=== PATIENT | male | born 1970 | race Two or more races ===

== ENCOUNTER 2017-07-24 20:34 | Emergency (ER) | payer OTHER ==
[~2017-07-24] VITALS: Ht 170.2 cm; Wt 81.6 kg
[~2017-07-24 20:34] MED LIST: CEFTIN500 MG PO; CONVIVIR; FIORICET TABLET1 TAB PO; FOLIC ACID1 MG PO; IBUPROFEN800 MG PO; KETO10TA2 PO; ORPH100T PO; SEPTRA DS TABLE1 TAB PO; ULTRACET PO; VIRACEPT250 MG PO; [UNRECOGNIZED DRUG - OTHER]
== END 2017-07-24 22:34 | disposition home or self-care (01) ==
LOC: ER 20:34
DX: H57.8 Other specified disorders of eye and adnexa (principal)

== ENCOUNTER 2020-01-15 11:07 | Emergency (ER) | payer OTHER ==
[~2020-01-15] VITALS: Ht 170.2 cm; Wt 81.6 kg
[2020-01-15] MEDS ORDERED: [UNRECOGNIZED DRUG - OTHER] (11:51)
== END 2020-01-15 16:50 | disposition home or self-care (01) ==
LOC: ER 11:07
DX: B34.9 Viral infection, unspecified (principal)

== ENCOUNTER 2020-07-19 20:55 | Emergency (ER) | payer OTHER ==
[~2020-07-19] VITALS: Ht 170.2 cm; Wt 85.7 kg
[~2020-07-19 20:55] MED LIST changes: +CARAFATE1 GM PO; +PEPCID AC20 MG PO; +[UNRECOGNIZED DRUG - OTHER]
== END 2020-07-20 00:10 | disposition home or self-care (01) ==
LOC: ER 20:55
DX: K29.70 Gastritis, unspecified, without bleeding (principal); Z11.52 Encounter for screening for COVID-19

== ENCOUNTER 2020-08-17 22:48 | Emergency (ER) | payer OTHER ==
[~2020-08-17] VITALS: Ht 170.2 cm; Wt 86.2 kg
[2020-08-17] MEDS ORDERED: DOVATO 50-3001 EACH (23:12)
[2020-08-17] MEDS ORDERED: PEPCID AC10 MG (23:13)
[2020-08-18] MEDS ORDERED: CARAFATE1 GM PO (02:23)
[2020-08-18] MEDS ORDERED: PROTONIX20 MG PO (02:23)
== END 2020-08-18 03:56 | disposition home or self-care (01) ==
LOC: ER 22:48
DX: K29.70 Gastritis, unspecified, without bleeding (principal); R10.13 Epigastric pain

== ENCOUNTER 2021-11-11 09:17 | Emergency (ER) | payer OTHER ==
[~2021-11-11] VITALS: Ht 170.2 cm; Wt 83.9 kg
[~2021-11-11 09:17] MED LIST changes: +DOVATO 50-3001 EACH; +PEPCID AC10 MG; +PROTONIX20 MG PO
[2021-11-11] MEDS ORDERED: BUTALB-ACETAMI1 EACH PO (13:53)
[2021-11-11] MEDS ORDERED: AMOX-CLAV 875-1 EACH PO (13:53)
== END 2021-11-11 14:48 | disposition home or self-care (01) ==
LOC: ER 09:17
DX: R51.9 Headache, unspecified (principal); J32.9 Chronic sinusitis, unspecified; Z20.828 Contact with and (suspected) exposure to other viral communicable diseases

== ENCOUNTER 2022-01-04 15:19 | Emergency (ER) | payer OTHER ==
[~2022-01-04] VITALS: Ht 170.2 cm; Wt 84.8 kg
[~2022-01-04 15:19] MED LIST changes: +AMOX-CLAV 875-1 EACH PO; +BUTALB-ACETAMI1 EACH PO
[2022-01-04] MEDS ORDERED: TYLENOL (15:43)
[2022-01-04] MEDS ORDERED: ZYNCOF (15:43)
== END 2022-01-04 18:42 | disposition home or self-care (01) ==
LOC: ER 15:19
DX: R05.9 Cough, unspecified (principal); B20 Human immunodeficiency virus [HIV] disease; A49.3 Mycoplasma infection, unspecified site; Z20.822 Contact with and (suspected) exposure to COVID-19; Z91.011 Allergy to milk products

== ENCOUNTER 2022-01-27 15:16 | Emergency (ER) | payer OTHER ==
[~2022-01-27] VITALS: Ht 170.2 cm; Wt 86.2 kg
[~2022-01-27 15:16] MED LIST changes: +TYLENOL; +ZYNCOF
[2022-01-27] MEDS ORDERED: DOVATO 50-3001 EACH PO (15:52)
[2022-01-27] MEDS ORDERED: KETO10TA2 PO (22:47)
== END 2022-01-27 22:52 | disposition expired ==
LOC: ER 15:16
DX: N44.2 Benign cyst of testis (principal); N50.811 Right testicular pain; N50.3 Cyst of epididymis; Z91.011 Allergy to milk products

== ENCOUNTER 2022-04-13 11:13 | Emergency (ER) | payer OTHER ==
[~2022-04-13] VITALS: Ht 170.2 cm; Wt 84.8 kg
[~2022-04-13 11:13] MED LIST changes: +DOVATO 50-3001 EACH PO
== END 2022-04-13 14:48 | disposition home or self-care (01) ==
LOC: ER 11:13
DX: K52.9 Noninfective gastroenteritis and colitis, unspecified (principal)

== ENCOUNTER 2022-04-21 11:14 | Emergency (ER) | payer OTHER ==
[~2022-04-21] VITALS: Ht 170.2 cm; Wt 83.9 kg
[2022-04-21] MEDS ORDERED: CIPRO500 MG PO (19:12)
[2022-04-21] MEDS ORDERED: KETO10TA2 PO (19:12)
== END 2022-04-21 20:08 | disposition home or self-care (01) ==
LOC: ER 11:14
DX: R10.31 Right lower quadrant pain (principal); N30.90 Cystitis, unspecified without hematuria; Z21 Asymptomatic human immunodeficiency virus [HIV] infection status

== ENCOUNTER 2022-06-12 09:10 | Outpatient (CLI) | payer OTHER ==
[~2022-06-12 09:10] MED LIST changes: +CIPRO500 MG PO
== END 2022-06-12 09:11 | disposition home or self-care (01) ==
LOC: LAB 09:10
PROVIDERS: ATTEND Internal Medicine
DX: U07.1 COVID-19 (principal); B34.1 Enterovirus infection, unspecified

== ENCOUNTER → 2022-06-13 | Outpatient (CLI) | payer OTHER ==
[~2022-06-13] MED LIST changes: +MIRALAX17 GM PO; +TRAMADOL HCL50 MG PO; +TYLENOL ARTHRI650 MG PO
== END | disposition home or self-care (01) ==
LOC: NUCLEAR 07:00
DX: Z13.6 Encounter for screening for cardiovascular disorders (principal); R94.31 Abnormal electrocardiogram [ECG] [EKG]
CPT/HCPCS: 78452; 93017; A9500

== ENCOUNTER 2022-06-18 10:36 | Outpatient (CLI) | payer OTHER ==
[~2022-06-18 10:36] MED LIST changes: -MIRALAX17 GM PO; -TRAMADOL HCL50 MG PO; -TYLENOL ARTHRI650 MG PO
== END 2022-06-18 14:24 | disposition home or self-care (01) ==
LOC: LAB 10:36
PROVIDERS: ATTEND Internal Medicine
DX: Z11.52 Encounter for screening for COVID-19 (principal); U07.1 COVID-19

== ENCOUNTER 2022-06-19 09:47 | Day surgery (SDC) | payer OTHER ==
[2022-06-19] MEDS ORDERED: MIRALAX17 GM PO (13:56)
[2022-06-19] MEDS ORDERED: TYLENOL ARTHRI650 MG PO (13:56)
[2022-06-19] MEDS ORDERED: TRAMADOL HCL50 MG PO (13:56)
[2022-06-19] MEDS ORDERED: KETO10TA2 PO (13:56)
== END 2022-06-19 20:30 | disposition home or self-care (01) ==
LOC: CIR.AMB 09:47
PROVIDERS: ATTEND Surgery
DX: K40.20 Bilateral inguinal hernia, without obstruction or gangrene, not specified as recurrent (principal); K42.9 Umbilical hernia without obstruction or gangrene; Z20.822 Contact with and (suspected) exposure to COVID-19

== ENCOUNTER 2024-02-21 05:29 | Emergency (ER) | payer OTHER ==
[~2024-02-21] VITALS: Ht 170.2 cm; Wt 85.3 kg
[~2024-02-21 05:29] MED LIST changes: +MIRALAX17 GM PO; +TRAMADOL HCL50 MG PO; +TYLENOL ARTHRI650 MG PO
[2024-02-21] MEDS ORDERED: CHILDREN'S ASPI81 MG PO (05:43)
[2024-02-21] MEDS ORDERED: MAGNESIUM400 MG PO (05:43)
[2024-02-21] MEDS ORDERED: CEFTRIAXONE SODIUM 1,000 MG VIAL IV ONE (06:00)
[2024-02-21 07:44] LABS: HEMATOCRIT 44.8 % (39.0-48.0); HEMOGLOBIN 15.7 g/dL (13-16.00); MEAN CELL VOLUME 96.5 fL (80.0-100.00); MEAN CORPUSCULAR HEMOGLOBIN 33.9 pg (27.00-32.0); MEAN CORPUSCULAR HGB CONC 35.1 g/dl (32.0-36.0); PLATELET COUNT 262 K/uL (150-450); RED BLOOD COUNT 4.64 M/uL (4.00-6.00); RED CELL DISTRIBUTION WIDTH 13.1 % (11.5-14.5)
[2024-02-21 07:52] LABS: PH,URINE 5.5 (5.0-8.0); URINE APPEARANCE Clear; URINE BILIRRUBIN Negative (NEGATIVE); URINE BLOOD Negative; URINE COLOR Yellow; URINE GLUCOSE Negative (NEGATIVE); URINE KETONE Negative (NEGATIVE); URINE LEUKOCYTE Negative; URINE NITRATE Negative; URINE PROTEIN Negative (NEGATIVE); URINE UROBILINOGEN 0.2 E.U./dl
[2024-02-21 07:53] LABS: URINE BACTERIA 7.5 uL (0.0-1933); URINE EPITHELIAL CELLS 1.8 uL (0.0-38.8); URINE RBC 5.3 uL (0.0-20.8); URINE WBC 16.4 uL (0.0-23.2)
[2024-02-21 08:25] LABS: ALBUMIN 3.4 gm/dL (3.4-5.0); BILIRUBIN TOTAL 0.51 mg/dL (0.3-1.2); CALCIUM 8.7 mg/dL (8.5-10.1); CREATININE SERUM 0.86 mg/dL (0.70-1.30); GFR 93.38; GLOBULINA 3.3 G/DL (2.4-3.5); POTASSIUM 3.78 mEq/L (3.5-5.1); PROSTATIC SPECIFIC ANTIGEN 2.54 NG/ML (0.010-4.00); TOTAL PROTEIN 6.7 gm/dL (6.4-8.2)
== END 2024-02-21 10:10 | disposition home or self-care (01) ==
LOC: ER 05:30
PROVIDERS: General Practice
DX: R33.9 Retention of urine, unspecified (principal); R21 Rash and other nonspecific skin eruption

== ENCOUNTER → 2024-12-15 | Emergency (ER) | payer OTHER ==
[~2024-12-15] VITALS: Ht 172.7 cm; Wt 86.2 kg
[~2024-12-15] MED LIST changes: +AZITHROMYCIN 500 MG VIAL IV ONE; +BENZ IM ONE; +CEFTRIAXONE SODIUM 1,000 MG VIAL IV ONE; +CEFTRIAXONE SODIUM 1,000 MG VIAL ONE; +CHILDREN'S ASPI81 MG PO; +DISP SYRIN IM ONE; +FLUCONAZOLE 150 MG TABLET PO ONE; +KETOROLAC TROMETHAMINE 60 MG VIAL IM ONE; +KETOROLAC TROMETHAMINE 60 MG VIAL IM STA; +LEVOFLOXACIN750 MG PO; +MAGNESIUM400 MG PO; +MICONAZOLE NITR15 GM TOP; +PENICILLIN G BENZATHINE LA 1.2 MMU/2 ML DISP.SYRIN IM ONE; +PROCAINE IM ONE; +[UNRECOGNIZED DRUG - OTHER] IM ONE
[2024-12-15 08:09] LABS: BASO % 0.4 % (0.1-1.2); EOS # 0.10 (0.04-0.54); EOS % 1.3 % (0.7-7.0); LYMPH # 1.61 (1.18-3.74); LYMPH % 21.5 % (19.3-53.1); MEAN PLATELET VOLUME 9.30 fl (9.4-12.4); MONO # 0.51 (0.24-0.82); MONO % 6.8 % (4.7-12.5); NEUT # 5.17 (1.56-6.13); NEUT % 68.9 % (34.0-71.1); RED CELL DISTRIBUTION WIDTH 12.2 % (11.6-14.4)
[2024-12-15 08:33] LABS: BUN CREA RATIO 19.0 (7.0-25.0); CREATININE SERUM 1.04 mg/dL (0.70-1.30); GFR 74.99; GLUCOSE FASTING 153.0 mg/dL (65-100); OSMOLALITY SERUM 289.0 MOSM/KG (275-295)
[2024-12-15 08:41] LABS: COVID-19 AG NEGATIVE (NEGATIVE)
[2024-12-15 08:46] LABS: URINE APPEARANCE Clear; URINE BILIRRUBIN Negative (NEGATIVE); URINE BLOOD Negative; URINE COLOR Yellow; URINE GLUCOSE Negative (NEGATIVE); URINE KETONE Trace (NEGATIVE); URINE LEUKOCYTE Negative; URINE NITRATE Negative; URINE PROTEIN Negative (NEGATIVE); URINE UROBILINOGEN 1.0 E.U./dl
[2024-12-15 08:50] LABS: URINE EPITHELIAL CELLS 1.5 uL (0.0-38.8); URINE RBC 6.5 uL (0.0-20.8); URINE WBC 2.7 uL (0.0-23.2)
[2024-12-15 09:02] LABS: URINE BACTERIA 1.1 uL (0.0-1933); URINE CAST 0.00 uL (0.0-1.40)
== END | disposition home or self-care (01) ==
LOC: ER 03:29
PROVIDERS: General Practice
DX: R50.9 Fever, unspecified (principal); R51.9 Headache, unspecified; Z20.822 Contact with and (suspected) exposure to COVID-19; E11.9 Type 2 diabetes mellitus without complications; Z21 Asymptomatic human immunodeficiency virus [HIV] infection status